=== PATIENT | female | born 1990 | race Caucasian/White ===

== ENCOUNTER 2017-10-07 12:47 | Emergency (ER) | payer MEDICAID ==
[~2017-10-07] VITALS: Ht 170.2 cm; Wt 78.0 kg
[2017-10-07 12:55] VITALS: BP 129/58
--- NOTE | 2017-10-07 15:19 | NUR ---
PT AMBULATED TO [facility]
--- NOTE | 2017-10-07 15:26 | NUR ---
PATIENT PRESENTS TO ED WITH C/O ,DIZZINESS X 4 DAYS. PT STATES GAVE LAST September .FEELS NAUSEATED BUT DENIES V/D; SKIN IS PINK/WARM/DRY; AAOX4 WITH EVEN AND STEADY GAIT; LUNGS CLEAR BL; HR EVEN AND REGULAR; PT DENIES ANY FEVER, CP, SOB, OR COUGH AT THIS TIME; PATIENT STATES PAIN OF 10/10 AT THIS TIME;PATIENT POSITIONED FOR COMFORT;ER MD MADE AWARE OF PT STATUS.
[2017-10-07] MEDS ORDERED: KETOROLAC 60 MG/2 ML VIAL IM ONE (16:05)
[2017-10-07] MEDS ORDERED: ONDANSETRON 4 MG ODT PO ONE (16:05)
[2017-10-07] MEDS ORDERED: PROMETHAZINE 25 MG/ML VIAL IM ONE (16:05)
--- NOTE | 2017-10-07 17:27 | NUR ---
Patient discharged with v/s stable. Written and verbal after care instructions given and explained. Patient alert, oriented and verbalized understanding of instructions. Ambulatory with . All questions addressed prior to discharge. ID band removed. Patient advised to follow up with PMD. Rx of TAMIFLU,FIORICET AND PROMETHAZINE given. Patient educated on indication of medication including possible reaction and side effects. Opportunity to ask questions provided and answered.
[2017-10-07 17:28] VITALS: BP 137/78
== END 2017-10-07 17:27 | disposition home or self-care (01) ==
LOC: MED 12:47
DX: O98.53 Other viral diseases complicating the puerperium (principal); J11.1 Influenza due to unidentified influenza virus with other respiratory manifestations; J32.9 Chronic sinusitis, unspecified
CPT/HCPCS: 36415; 81002; 81025; 87804; 96372; 99284; J1885; J2550; S0119

== ENCOUNTER 2018-10-16 01:43 | Emergency (ER) | payer MEDICAID ==
[~2018-10-16] VITALS: Ht 165.1 cm; Wt 77.2 kg
[2018-10-16 01:52] VITALS: BP 117/63
--- NOTE | 2018-10-16 02:00 | NUR ---
PT AMBULATED TO THE RESTROOM. PT TOLERATED WELL.
--- NOTE | 2018-10-16 02:01 | NUR ---
PT AMBULATED BACK TO THE LOBBY. PT VSS
--- NOTE | 2018-10-16 02:15 | NUR ---
PT AMBULATED TO BED 12 WITH VSS.
--- NOTE | 2018-10-16 02:30 | NUR ---
PT BIB SELF FOR VAGINAL BLEEDING AND SUPRAPUBIC PAIN X4 HOURS. PT REPORTS NON-RADIATING CRAMPING PAIN AT 8/10. PT STATES SHE IS SATURATING 1 PAD PER HOUR. PT GAVE URINE SAMPLE WITH MODERATE SIZE BLOOD CLOT IN IT POSSIBLE PRODUCT OF CONSEPTION. VSS. ER MD TO SEE PT. HOB ELEVATED, BED IN LOWEST POSITION, SIDE RAIL UP X1.
[2018-10-16 02:43] LABS: BASOPHILS % (AUTO) 0.4 % (0.0-2.0); EOSINOPHILS # (AUTO) 0.2 K/uL (0-0.4); EOSINOPHILS % (AUTO) 1.5 % (0.0-4.0); HEMATOCRIT 41.4 % (36-48); HEMOGLOBIN 14.1 g/dL (12.0-16.0); LYMPHOCYTES # (AUTO) 1.8 K/uL (2.5-16.5); LYMPHOCYTES % (AUTO) 16.7 % (20.5-51.1); MEAN CORPUSCULAR HEMOGLOBIN 28 pg (27-31); MEAN CORPUSCULAR HGB CONC 34 g/dL (33-37); MONOCYTES # (AUTO) 0.5 K/uL (0.8-1.0); NEUTROPHILS # (AUTO) 8.2 K/uL (1.8-7.7); NEUTROPHILS % (AUTO) 76.4 % (42.2-75.2); PLATELET COUNT (AUTO) 266 K/uL (140-450); RED BLOOD CELL COUNT(AUTO) 5.05 MIL/uL (4.20-5.40); RED CELL DISTRIBUTION WIDTH 13.4 % (11.6-13.7); WHITE BLOOD COUNT (AUTO) 10.8 K/uL (4.8-10.8)
[2018-10-16 02:44] LABS: APPEARANCE,URINE TURBID (CLEAR); BILIRUBIN,URINE NEGATIVE (NEGATIVE); BLOOD, URINE 3+ (NEGATIVE); COLOR,URINE RED (YELLOW); LEUKOCYTE ESTERASE ,URINE 3+ (NEGATIVE); NITRITE, URINE POSITIVE (NEGATIVE); UGLUCOSE 1+ (NEGATIVE)
[2018-10-16 03:00] LABS: RBC,URINE TOO NUMEROUS TO COUN /HPF (0-5)
[2018-10-16 04:57] VITALS: BP 117/63
--- NOTE | 2018-10-16 04:57 | NUR ---
Patient discharged with v/s stable. Written and verbal after care instructions given and explained. Patient alert, oriented and verbalized understanding of instructions. Ambulatory with steady gait. All questions addressed prior to discharge. ID band removed. Patient advised to follow up with PMD. Rx of MACROBID WAS given. Patient educated on indication of medication including possible reaction and side effects. Opportunity to ask questions provided and answered.
== END 2018-10-16 04:57 | disposition home or self-care (01) ==
LOC: MED 01:43
DX: O20.0 Threatened abortion (principal); O23.41 Unspecified infection of urinary tract in pregnancy, first trimester; Z3A.08 8 weeks gestation of pregnancy
CPT/HCPCS: 36415; 76817; 81001; 81025; 84702; 85025; 86900; 86901; 87086; 88305; 99284